=== PATIENT | female | born 2000 | race Two or more races ===

== ENCOUNTER → 2019-10-21 | Outpatient (CLI) | payer OTHER | END | disposition home or self-care (01) | LOC: LABWHC1 11:27 | PROVIDERS: ATTEND Nurse Practitioner Family | DX: R00.2 Palpitations (principal); R42 Dizziness and giddiness | CPT/HCPCS: 36415; 93005 ==

== ENCOUNTER → 2019-11-05 | Outpatient (CLI) | payer OTHER ==
--- NOTE | 2019-11-05 14:56 | ECHOF ---
Referral Reason:R42 dizziness, R00.2 palpitations MEASUREMENTS -------- HEIGHT: 165.1 cm WEIGHT: 66.2 kg BP: 119/66 RVIDd: 2.6 cm (< 3.3) IVSd: 0.9 cm (0.6 - 1.1) LVIDd: 4.2 cm (3.9 - 5.3) LVPWd: 1.1 cm (0.6 - 1.1) IVSs: 1.6 cm LVIDs: 2.9 cm LVPWs: 1.4 cm LA Diam: 2.6 cm (2.7 - 3.8) Ao Diam: 3.1 cm (2.0 - 3.7) AV Cusp: 2.1 cm (1.5 - 2.6) MV EXCURSION: 19.262 mm (> 18.000) MV EF SLOPE: 110 mm/s (70 - 150) EPSS: 0.4 cm MV E [place]: 1.03 m/s MV DecT: 165 ms MV A [place]: 0.76 m/s MV E/A Ratio: 1.35 RAP: 5.00 mmHg RVSP: 22.41 mmHg FINDINGS -------- Sinus rhythm. This was a technically good study. The left ventricular size is normal. Left ventricular wall thickness is normal. Overall left vent ricular systolic function is normal with, an EF between 55 - 60 %. The right ventricle is normal in size. The left atrial size is normal. The right atrial size is normal. Interatrial and interventricular septum intact. The aortic valve is trileaflet and appears structurally normal. Trace amount of aortic regurgitatio n. The mitral valve is normal. There is trace mitral regurgitation. Mild tricuspid regurgitation present. Right ventricular systolic pressure is normal at < 35 mmHg. The right ventricular systolic pressure, as measured by Doppler, is 22.41mmHg. Trace/mild (physiologic) pulmonic regurgitation. The aortic root size is normal. Normal inferior vena cava with normal inspiratory collapse consistent with estimated right atrial pre ssure of 5 mmHg. There is no pericardial effusion. CONCLUSIONS -------- 1. Sinus rhythm. 2. This was a technically good study. 3. The left ventricular size is normal. 4. Left ventricular wall thickness is normal. 5. Overall left ventricular systolic function is normal with, an EF between 55 - 60 %. 6. The left atrial size is normal. 7. The aortic valve is trileaflet and appears structurally normal. 8. Trace amount of aortic regurgitation. 9. There is trace mitral regurgitation. 10. Mild tricuspid regurgitation present. 11. Right ventricular systolic pressure is normal at < 35 mmHg. 12. Trace/mild (physiologic) pulmonic regurgitation. 13. There is no pericardial effusion. PASTRY SUPERVISOR: Minal Wild RDCS
== END | disposition home or self-care (01) ==
LOC: RADECHMAIN 11:14
PROVIDERS: ATTEND Family Medicine
DX: I07.1 Rheumatic tricuspid insufficiency (principal); I37.1 Nonrheumatic pulmonary valve insufficiency; R42 Dizziness and giddiness
CPT/HCPCS: 93270; 93306

== ENCOUNTER → 2021-07-29 | Outpatient (CLI) | payer OTHER ==
--- NOTE | 2021-07-29 15:47 | US ---
EXAMINATION TYPE: US thyroid st tissue head/neck DATE OF EXAM: 07/29/2021 COMPARISON: NONE CLINICAL HISTORY: M54.2 Cervicalgia, Z83.49 Family history of other. pain in her neck, normal labs pe r patient, no other complaints GLAND SIZE: Right Lobe: 4.7 x 1.1 x 1.5 cm Overall Parenchyma: heterogenous Left Lobe: 4.3 x 1.3 x 1.6 cm Overall Parenchyma: heterogeneous Isthmus Thickness: 0.4 cm NODULES RIGHT: # of nodules measured on right: 0 LEFT: # of nodules measured on left: 0 ISTHMUS: # of nodules measured in the isthmus: 0 Bilateral neck scanned, no evidence of lymphadenopathy. IMPRESSION: Benign thyroid ultrasound
== END | disposition home or self-care (01) ==
LOC: RADUSWWP 14:49
PROVIDERS: ATTEND Family Medicine
DX: M54.2 Cervicalgia (principal); Z83.49 Family history of other endocrine, nutritional and metabolic diseases
CPT/HCPCS: 76536

== ENCOUNTER 2023-07-26 23:06 | Emergency (ER) | payer OTHER ==
[2023-07-27] MEDS ORDERED: ONDANSETRON 4 MG/2 ML VIAL IVP STA (01:29)
[2023-07-27] MEDS ORDERED: PYRIDOXINE 100 MG/ML 1 ML VIAL IVP STA (01:29)
[2023-07-27] MEDS ORDERED: DEXTROSE 5%-0.9% NACL 1,000 ML IV SCH (01:30)
[2023-07-27 02:17] LABS: Appearance,Urine Clear (Clear); Bilirubin,Urine Negative (Negative); Blood,Urine Negative (Negative); Color,Urine Yellow; Glucose,Urine (UA) Negative (Negative); Ketones,Urine 3+ (Negative); Leukocyte Esterase,Urine Negative (Negative); Nitrite,Urine Negative (Negative); PH, Urine 6.5 (5.0-8.0); Protein,Urine Trace (Negative); Specific Gravity,Urine 1.026 (1.001-1.035); Urobilinogen,Urine <2.0 mg/dL (<2.0)
[2023-07-27 03:20] LABS: African American GFR (CKD) >90 (>60 ml/min/1.73 sqM); Anion Gap 10 mmol/L; Blood Urea Nitrogen 9 mg/dL (7-17); Calcium 9.5 mg/dL (8.4-10.2); Carbon Dioxide 21 mmol/L (22-30); Chloride 103 mmol/L (98-107); Glucose 98 mg/dL (74-99); Non-African American GFR(CKD) >90 (>60 ml/min/1.73 sqM); Potassium 4.1 mmol/L (3.5-5.1); Sodium 134 mmol/L (137-145)
[2023-07-27 03:22] LABS: Basophils % (A) 0 %; Eosinophils # (A) 0.1 k/uL (0-0.7); Eosinophils % (A) 1 %; HCT 39.7 % (34.0-46.0); HGB 13.5 gm/dL (11.4-16.0); Lymphocytes # (A) 2.2 k/uL (1.0-4.8); Lymphocytes % (A) 21 %; MCH 30.4 pg (25.0-35.0); MCHC 34.1 g/dL (31.0-37.0); MCV 89.3 fL (80.0-100.0); Mean Platelet Volume 8.1; Monocytes # (A) 0.4 k/uL (0-1.0); Monocytes % (A) 4 %; Neutrophils # (A) 7.7 k/uL (1.3-7.7); Neutrophils % (A) 73 %; Platelet Count 289 k/uL (150-450); RBC 4.45 m/uL (3.80-5.40); RDW 12.1 % (11.5-15.5); WBC 10.5 k/uL (3.8-10.6)
--- NOTE | 2023-07-27 03:58 | ED ---
General Adult HPI - General Chief complaint: Nausea/Vomiting/Diarrhea Stated complaint: Vomiting, Dehydration Time Seen by Provider: 07/27/23 01:20 Source: patient, RN notes reviewed, old records reviewed Mode of arrival: ambulatory Limitations: no limitations - History of Present Illness Initial comments: Patient is a 22-year-old female, A1 who presents emergency Department complaining of nausea and vomiting. Has been slightly throughout this however today has been unable to tolerate oral intake. States it was getting worse this morning. Endorses epigastric abdominal discomfort with vomiting but no other abdominal pain. Denies vaginal bleeding. Denies any vaginal discharge. Denies any urinary complaints. His no chest pain or shortness of breath. Denies any fevers or chills. Has not yet followed up with a CHARGE MASTER COORDINATOR but has appointment next week. Is not currently on vitamins. Was previously on Zofran for her last which ended in a 7 week miscarriage, which she is approximately 7 weeks at this time. However she has no more Zofran tablets and presents for further evaluation and she is concerned she is dehydrated. - Related Data Previous Rx's Medication Instructions Recorded Meclizine [Antivert] 25 mg PO TID #30 tab 01/29/16 Ondansetron Odt [Zofran Odt] 4 mg PO Q8HR PRN 3 Days #9 tab 07/27/23 [id number]/Iron/FA/O3/Dha/Epa/Fish 1 each PO DAILY 30 Days #30 capsule 07/27/23 [ Multi-Dha Softgel] Allergies Allergy/AdvReac Type Severity Reaction Status Date / Time No Known Allergies Allergy Verified 07/26/23 23:24 Review of Systems ROS Statement: Those systems with pertinent positive or pertinent negative responses have been documented in the HPI. Review of Systems: CONST: Denies fever EYES: Denies blurry vision ENT: Denies nasal congestion C/V: Denies Chest pain RESP: Denies shortness of breath GI: Endorses nausea and vomiting, mild epigastric abdominal pain. : Denies dysuria SKIN: Denies rash. MSK: Denies joint pain. NEURO: Denies headache ROS Other: All systems not noted in ROS Statement are negative. Past Medical History Past Medical History: No Reported History History of Any Multi-Drug Resistant Organisms: None Reported Past Surgical History: No Surgical Hx Reported Past Psychological History: Anxiety Smoking Status: Never smoker Past Alcohol Use History: None Reported Past Drug Use History: None Reported General Exam - General Exam Comments Initial Comments: General: Appears in no acute distress. HEAD: Normal with no signs of head trauma. EYES: PERRLA, EOMI, conjunctiva normal, no discharge. ENT: Hearing grossly intact, normal oropharynx. Dry mucous membranes. RESPIRATORY: Clear breath sounds bilaterally. No wheezes, rales, or rhonchi. C/V: Regular rate and rhythm. S1 and S2 auscultated,peripheral pulses 2+ and intact throughout ABD: Abd is soft, nontender, nondistended EXT: Normal range of motion, no obvious deformity SKIN: No rashes or lesions observed on exposed skin. NEURO: Alert and oriented 4. Limitations: no limitations Course Vital Signs 07/26/23 23:25 Temperature 97.8 F Pulse Rate 95 Respiratory 18 Rate Blood Pressure 125/77 O2 Sat by Pulse 98 Oximetry Medical Decision Making - Medical Decision Making Was pt. sent in by a medical professional or institution (, PA, REGULATORY COMPLIANCE DIRECTOR, urgent care, hospital, or penitentiary...) When possible be specific @ -No Did you speak to anyone other than the patient for history (EMS, parent, family, police, friend...)? What history was obtained from this source @ -No Did you review nursing and triage notes (agree or disagree)? Why? @ -I reviewed and agree with nursing and triage notes Were old charts reviewed (outside hosp., previous admission, EMS record, old EKG, old radiological studies, urgent care reports/EKG's, penitentiary records)? Report findings @ -No old charts were reviewed Differential Diagnosis (chest pain, altered mental status, abdominal pain women, abdominal pain men, vaginal bleeding, weakness, fever, dyspnea, syncope, headache, dizziness, GI bleed, back pain, seizure, CVA, palpatations, mental health, musculoskeletal)? @ -Hyperemesis gravidarum, , dehydration. This list is not all inclusive. EKG interpreted by me (3pts min.). @ -None done X-rays interpreted by me (1pt min.). @ -None done CT interpreted by me (1pt min.). @ -None done U/S interpreted by me (1pt. min.). @ -None done What testing was considered but not performed or refused? (CT, X-rays, U/S, labs)? Why? @ -None What meds were considered but not given or refused? Why? @ -None Did you discuss the management of the patient with other professionals (professionals i.e. , PA, REGULATORY COMPLIANCE DIRECTOR, lab, RT, psych nurse, health care social worker, back sewer, teacher, employee service officer, manager case management)? Give summary @ -No Was smoking cessation discussed for >3mins.? @ -No Was critical care preformed (if so, how long)? @ -No Were there social determinants of health that impacted care today? How? (Homelessness, low income, unemployed, alcoholism, drug addiction, transportation, low edu. Level, literacy, decrease access to med. care, fpc, rehab)? @ -No Was there de-escalation of care discussed even if they declined (Discuss DNR or withdrawal of care, Hospice)? DNR status @ -No What co-morbidities impacted this encounter? (DM, HTN, Smoking, COPD, CAD, Cancer, CVA, ARF, Chemo, Hep., AIDS, mental health diagnosis, sleep apnea, morbid obesity)? @ -None Was patient admitted / discharged? Hospital course, mention meds given and route, prescriptions, significant lab abnormalities, going to OR and other pertinent info. @ -Based on the patient's presentation and physical exam, she presents approximately 7 weeks with intractable nausea and vomiting. Concern for hyperemesis gravidarum which she does have a history of. No concern for miscarriage at this time. We will obtain abdominal laboratory studies as well as provide the patient with 1 L D5 normal saline as well as obtain a urinalysis. She was in agreement this plan. She'll be given vitamin B6 as well as Zofran for nausea. Vital signs within acceptable limits. Labs are remarkable for 3+ ketones in the urine but otherwise within acceptable limits. Quantitative beta-hCG is. On reevaluation, patient is feeling improved. She is tolerating oral intake. She'll be discharged home at this time. She'll be given a prescription for vitamins as well as ODT Zofran. She was in agreement this plan. I will provide the patient with a prescription for ODT Zofran, vitamins. I instructed the patient to follow up with their PCP in the next 1-3 days. I explained that the patient should return to the emergency department if they experience any worsening symptoms. Strict return precautions were discussed with the patient. The patient expressed understanding of these instructions. I answered all questions that the patient had. The patient was discharged home in good condition with their prescriptions and follow up information. Undiagnosed new problem with uncertain prognosis? @ -No Drug Therapy requiring intensive monitoring for toxicity (Heparin, Nitro, Insulin, Cardizem)? @ -No Were any procedures done? @ -No Diagnosis/symptom? @ -Nausea and vomiting in , dehydration Acute, or Chronic, or Acute on Chronic? @ -Acute Uncomplicated (without systemic symptoms) or Complicated (systemic symptoms)? @ -Complicated Side effects of treatment? @ -No Exacerbation, Progression, or Severe Exacerbation? @ -No Poses a threat to life or bodily function? How? (Chest pain, [place], [place], pneumonia, PE, COPD, DKA, ARF, appy, cholecystitis, CVA, Diverticulitis, Homicidal, Suicidal, threat to staff... and all critical care pts) @ -No - Lab Data Result diagrams: 07/27/23 01:49 07/27/23 01:49 Lab Results 07/27/23 07/27/23 07/27/23 Range/Units 01:49 01:49 01:49 WBC 10.5 (3.8-10.6) k/uL RBC 4.45 (3.80-5.40) m/uL Hgb 13.5 (11.4-16.0) gm/dL Hct 39.7 (34.0-46.0) % MCV 89.3 (80.0-100.0) fL MCH 30.4 (25.0-35.0) pg MCHC 34.1 (31.0-37.0) g/dL RDW 12.1 (11.5-15.5) % Plt Count 289 (150-450) k/uL MPV 8.1 Neutrophils % 73 % Lymphocytes % 21 % Monocytes % 4 % Eosinophils % 1 % Basophils % 0 % Neutrophils # 7.7 (1.3-7.7) k/uL Lymphocytes # 2.2 (1.0-4.8) k/uL Monocytes # 0.4 (0-1.0) k/uL Eosinophils # 0.1 (0-0.7) k/uL Basophils # 0.0 (0-0.2) k/uL Sodium 134 L (137-145) mmol/L Potassium 4.1 (3.5-5.1) mmol/L Chloride 103 (98-107) mmol/L Carbon Dioxide 21 L (22-30) mmol/L Anion Gap 10 mmol/L BUN 9 (7-17) mg/dL Creatinine 0.60 (0.52-1.04) mg/dL Est GFR (CKD-EPI)AfAm >90 (>60 ml/min/1.73 sqM) Est GFR (CKD-EPI)NonAf >90 (>60 ml/min/1.73 sqM) Glucose 98 (74-99) mg/dL Calcium 9.5 (8.4-10.2) mg/dL Urine Color Yellow Urine Appearance Clear (Clear) Urine pH 6.5 (5.0-8.0) Ur Specific [place] 1.026 (1.001-1.035) Urine Protein Trace H (Negative) Urine Glucose (UA) Negative (Negative) Urine Ketones 3+ H (Negative) Urine Blood Negative (Negative) Urine Nitrite Negative (Negative) Urine Bilirubin Negative (Negative) Urine Urobilinogen <2.0 (<2.0) mg/dL Ur Leukocyte Esterase Negative (Negative) Disposition Clinical Impression: Nausea and vomiting in , Dehydration Disposition: HOME SELF-CARE Condition: Good Instructions (If sedation given, give patient instructions): Acute Nausea and Vomiting (ED), Hyperemesis Gravidarum (ED) Prescriptions: [id number]/Iron/FA/O3/Dha/Epa/Fish [ Multi-Dha Softgel] 1 each PO DAILY 30 Days #30 capsule Ondansetron Odt [Zofran Odt] 4 mg PO Q8HR PRN 3 Days #9 tab PRN Reason: Nausea Is patient prescribed a controlled substance at d/c from ED?: No Referrals: Dex Corrigan MD [Primary Care Provider] - 1-2 days Time of Disposition: 03:45
[2023-07-27 04:13] VITALS: BP 113/67; PULSE 92; RESP 17; TEMP 99
[2023-07-27 04:41] LABS: HCG,Quantitative Serum 98373.7 mIU/mL
== END 2023-07-27 04:11 | disposition home or self-care (01) ==
LOC: EC 23:06
DX: O99.281 Endocrine, nutritional and metabolic diseases complicating pregnancy, first trimester (principal); E86.0 Dehydration; O21.9 Vomiting of pregnancy, unspecified; Z3A.01 Less than 8 weeks gestation of pregnancy
CPT/HCPCS: 36415; 80048; 85025; 81003; 84702; 99284; 96374; 96375; 96361; J3415; J2405

== ENCOUNTER → 2024-08-07 | Outpatient (CLI) | payer OTHER ==
--- NOTE | 2024-08-07 11:53 | XR ---
EXAMINATION TYPE: XR ribs RT DATE OF EXAM: 08/07/2024 CLINICAL HISTORY: Pain, Fall Four views of the ribs fail demonstrate evidence for displaced rib fracture or secondary sign of rib fracture. Visualized lungs are clear. No evidence for pneumothorax. IMPRESSION: 1. No displaced rib fractures seen. ICD 10 NO FRACTURE, INITIAL EVALUATION [facility] , 08/07/2024 11:51 AM
== END | disposition home or self-care (01) ==
LOC: RADXRMAIN 11:20
PROVIDERS: ATTEND Internal Medicine
DX: R07.81 Pleurodynia (principal)

== ENCOUNTER → 2024-09-20 | Outpatient (CLI) | payer OTHER ==
--- NOTE | 2024-09-21 22:49 | US ---
EXAMINATION TYPE: US liver DATE OF EXAM: 09/20/2024 COMPARISON: NONE CLINICAL INDICATION: Female, 23 years old with history of R07.81 RIB ON RIGHT SIDE; RUQ pain x 1 magui h TECHNIQUE: Grayscale and color Doppler imaging of the right upper quadrant was performed. FINDINGS: EXAM MEASUREMENTS: Liver Length: 14.2 cm Gallbladder Wall: 0.2 cm CBD: 0.3 cm Right Kidney: 11.1x4.1x5.8 cm SMALL PARTS ASSEMBLER NOTES: Pancreas: Tail obscured by overlying bowel gas Liver: wnl Gallbladder: suspicious pleomorphic isoechoic area at the gallbladder wall measuring up to 6mm. Diff erential includes polyp. Evidence for sonographic Rothman's sign: No CBD: wnl Right Kidney: wnl IMPRESSION: 1. Suspected polyp within the gallbladder. Follow-up monitoring recommended. [facility], , 09/21/2024 10:46 PM
== END | disposition home or self-care (01) ==
LOC: RADUSWWP 10:11
PROVIDERS: ATTEND Internal Medicine
DX: R07.81 Pleurodynia (principal)
CPT/HCPCS: 76705

== ENCOUNTER → 2025-04-07 | Outpatient (CLI) | payer OTHER | END | disposition home or self-care (01) | LOC: RADUSWWP 07:07 | PROVIDERS: ATTEND Surgery | DX: Z53.9 Procedure and treatment not carried out, unspecified reason (principal) ==

== ENCOUNTER 2025-04-08 14:44 | Emergency (ER) | payer OTHER ==
[2025-04-08 14:52] VITALS: TEMP 97.9
--- NOTE | 2025-04-08 15:06 | ED ---
Nausea/Vomiting/Diarrhea HPI - General Chief complaint: Nausea/Vomiting/Diarrhea Stated complaint: Abd pain Time Seen by Provider: 04/08/25 15:01 Source: patient, RN notes reviewed, old records reviewed Mode of arrival: ambulatory Limitations: no limitations - History of Present Illness Initial comments: This is a 24-year-old female to the ER for persistent nausea vomiting and diarrhea. Patient recently upped her GLP-1 injection and since has had nausea vomiting and diarrhea. No real abdominal pain here in the ER no other complaints patient has not felt feverish no travel history or sick contacts no other complaints MD complaint: nausea, vomiting, diarrhea, abdominal pain -: days(s) Description of Vomiting: food contents, watery, bilious Description of Diarrhea: water Location: diffuse Radiation: none Severity: moderate Severity scale (1-10): 4 Quality: cramping Consistency: intermittent Improves with: none Worsens with: none Associated Symptoms: myalgias - Related Data Previous Rx's Medication Instructions Recorded Meclizine [Antivert] 25 mg PO TID #30 tab 01/28/ Ondansetron Odt [Zofran Odt] 4 mg PO Q8HR PRN 3 Days #9 tab 07/27/23 [id number]/Iron/FA/O3/Dha/Epa/Fish 1 each PO DAILY 30 Days #30 capsule 07/27/23 [ Multi-Dha Softgel] Famotidine [Pepcid] 20 mg PO DAILY #5 tablet 04/10/25 Ondansetron Odt [Zofran ODT] 4 mg PO Q8HR PRN #9 tab 04/10/25 Allergies Allergy/AdvReac Type Severity Reaction Status Date / Time No Known Allergies Allergy Verified 04/10/25 08:23 Review of Systems ROS Statement: Those systems with pertinent positive or pertinent negative responses have been documented in the HPI. ROS Other: All systems not noted in ROS Statement are negative. Past Medical History Past Medical History: No Reported History History of Any Multi-Drug Resistant Organisms: None Reported Past Surgical History: No Surgical Hx Reported Past Psychological History: Anxiety Smoking Status: Never smoker Past Alcohol Use History: None Reported Past Drug Use History: None Reported General Exam Limitations: no limitations General appearance: alert, in no apparent distress Head exam: Present: atraumatic, normocephalic, normal inspection Eye exam: Present: normal appearance, PERRL, EOMI. Absent: scleral icterus, conjunctival injection, periorbital swelling ENT exam: Present: normal exam, mucous membranes moist Neck exam: Present: normal inspection. Absent: tenderness, meningismus, lymphadenopathy Respiratory exam: Present: normal lung sounds bilaterally. Absent: respiratory distress, wheezes, rales, rhonchi, stridor Cardiovascular Exam: Present: regular rate, normal rhythm, normal heart sounds. Absent: systolic murmur, diastolic murmur, rubs, gallop, clicks GI/Abdominal exam: Present: soft, normal bowel sounds. Absent: distended, tenderness, guarding, rebound, rigid Extremities exam: Present: normal inspection, full ROM, normal capillary refill. Absent: tenderness, pedal edema, joint swelling, calf tenderness Back exam: Present: normal inspection Neurological exam: Present: alert, oriented X3, CN II-XII intact Psychiatric exam: Present: normal affect, normal mood Skin exam: Present: warm, dry, intact, normal color. Absent: rash Course Vital Signs 04/08/25 04/08/25 14:50 16:44 Temperature 97.9 F Pulse Rate 103 H 84 Respiratory 16 18 Rate Blood Pressure 120/77 110/76 O2 Sat by Pulse 100 98 Oximetry - Reevaluation(s) Reevaluation #1: 04/08/25 20:26 Medical records reviewed Reevaluation #2: 04/08/25 20:26 Patient's symptoms improved Reevaluation #3: 04/08/25 20:26 Patient informed of results questions answered Reevaluation #4: Was pt. sent in by a medical professional or institution (, PA, [employer] MECH[employer]ICAL ENGINEER, urgent care, hospital, or longterm...) When possible be specific @ -no Did you speak to anyone other than the patient for history (EMS, parent, family, police, friend...)? What history was obtained from this source @ -no Did you review nursing and triage notes (agree or disagree)? Why? @ -agree Are old charts reviewed (outside hosp., previous admission, EMS record, old EKG, old radiological studies, urgent care reports/EKG's, longterm records)? R eport findings @ -yes Differential Diagnosis (chest pain, altered mental status, abdominal pain women, abdominal pain men, vaginal bleeding, weakness, fever, dyspnea, syncope, headache, dizziness, GI bleed, back pain, seizure, CVA, palpatations, mental health, musculoskeletal)? @ -prior EKG interpreted by me (3pts min.). @ -yes X-rays interpreted by me (1pt min.). @ -no CT interpreted by me (1pt min.). @ -no U/S interpreted by me (1pt. min.). @ -no What testing was considered but not performed or refused? (CT, X-rays, U/S, labs)? Why? @ -none What meds were considered but not given or refused? Why? @ -none Did you discuss the management of the patient with other professionals (prof mannys i.e. , PA, [employer] MECH[employer]ICAL ENGINEER, lab, RT, psych nurse, social studies teacher, lathe operator, teacher, senior credit officer, corrections caseworker)? Give summary @ -no Was smoking cessation discussed for >3mins.? @ -no Was critical care preformed (if so, how long)? @ -no Were there social determinants of health that impacted care today? How? (Homelessness, low income, unemployed, alcoholism, drug addiction, transportation, low edu. Level, literacy, decrease access to med. care, senior care, rehab)? @ -none Was there de-escalation of care discussed even if they declined (Discuss DNR or withdrawal of care, Hospice)? DNR status @ -no What co-morbidities impacted this encounter? (DM, HTN, Smoking, COPD, CAD, Cancer, CVA, ARF, Chemo, Hep., AIDS, mental health diagnosis, sleep apnea, morbid obesity)? @ -none Was patient admitted / discharged? Hospital course, mention meds given and route, prescriptions, significant lab abnormalities, going to OR and other pertinent info. @ - 24 female to ER for abdominal pain with nausea vomiting all symptoms resolved hydration has improved patient is symptoms here in the ER patient feels well for discharge home Discharge Undiagnosed new problem with uncertain prognosis? @ -no Drug Therapy requiring intensive monitoring for toxicity (Heparin, Nitro, Insulin, Cardizem)? @ -no Were any procedures done? @ -no Diagnosis/symptom? @ -Nausea vomiting dehydration Acute, or Chronic, or Acute on Chronic? @ -Acute Uncomplicated (without systemic symptoms) or Complicated (systemic symptoms)? @ -Complicated Side effects of treatment? @ -no Exacerbation, Progression, or Severe Exacerbation? @ -exacerbation Poses a threat to life or bodily function? How? (Chest pain, [place], [place], pneumonia, PE, COPD, DKA, ARF, appy, cholecystitis, CVA, Diverticulitis, Homicidal, Suicidal, threat to staff... and all critical care pts) @ -no Reevaluation #5: Differential Abdominal Pain Women: Appendicitis, Cholecystitis, diverticulosis, ischemic bowel, pancreatitis, hepatitis, UTI, gastroenteritis, AAA, incarcerated hernia, bowel obstruction, constipation, inflammatory bowel, hepatitis, peptic ulcer disease, splenic infarction, perforated viscus, vulvitis, ovarian torsion, PID, kidney stone, placenta abruption, this is not meant to be an all-inclusive list Medical Decision Making - Medical Decision Making 24 female to ER for abdominal pain with nausea vomiting all symptoms resolved hydration has improved patient is symptoms here in the ER patient feels well for discharge home - Lab Data Result diagrams: 04/08/25 15:17 04/08/25 15:17 Lab Results 04/08/25 04/08/25 04/08/25 Range/Units 15:17 15:17 15:17 WBC 10.08 H (4.50-10.00) 10*3/uL RBC 4.82 (4.10-5.20) 10*6/uL Hgb 14.6 (12.0-15.0) g/dL Hct 41.7 (37.2-46.3) % MCV 86.5 (80.0-97.0) fL MCH 30.3 (27.0-32.0) pg MCHC 35.0 (32.0-37.0) g/dL Plt Count 274 (140-440) 10*3/uL MPV 8.8 L (9.5-12.2) fL Immature Gran % (Auto) 0.3 % Neutrophils % 83.0 % Lymphocytes % 10.6 % Monocytes % 5.2 % Eosinophils % 0.7 % Basophils % 0.2 % Immature Gran # 0.03 (0.00-0.04) 10*3/uL Neutrophils # 8.37 H (1.80-7.70) 10*3/uL Lymphocytes # 1.07 (0.90-5.00) 10*3/uL Monocytes # 0.52 (0.20-1.00) 10*3/uL Eosinophils # 0.07 (0.04-0.35) 10*3/uL Basophils # 0.02 (0.00-0.10) 10*3/uL PT 10.6 (10.0-12.5) sec INR 0.9 (<1.2) APTT 26.8 (22.0-30.0) sec Sodium 137 (137-145) mmol/L Potassium 4.2 (3.5-5.1) mmol/L Chloride 105 (98-107) mmol/L Carbon Dioxide 24 (22-30) mmol/L Anion Gap 8 mmol/L BUN 12 (7-17) mg/dL Creatinine 0.71 (0.52-1.04) mg/dL Est GFR (CKD-EPI)AfAm >90 (>60 ml/min/1.73 sqM) Est GFR (CKD-EPI)NonAf >90 (>60 ml/min/1.73 sqM) Glucose 97 (74-99) mg/dL Plasma Lactic Acid Roman (0.7-2.0) mmol/L Calcium 9.5 (8.4-10.2) mg/dL Phosphorus 3.2 (2.5-4.5) mg/dL Magnesium 1.7 (1.6-2.3) mg/dL Total Bilirubin 0.8 (0.2-1.3) mg/dL AST 19 (14-36) U/L ALT 11 (4-34) U/L Alkaline Phosphatase 63 (38-126) U/L Troponin I (0.000-0.034) ng/mL Total Protein 8.1 (6.3-8.2) g/dL Albumin 4.8 (3.5-5.0) g/dL Lipase 79 (23-300) U/L Urine Color Urine Appearance (Clear) Urine pH (5.0-8.0) Ur Specific [place] (1.001-1.035) Urine Protein (Negative) Urine Glucose (UA) (Negative) Urine Ketones (Negative) Urine Blood (Negative) Urine Nitrite (Negative) Urine Bilirubin (Negative) Urine Urobilinogen (<2.0) mg/dL Ur Leukocyte Esterase (Negative) Urine HCG, Qual (Not Detectd) Influenza Type A (PCR) (Not Detectd) Influenza Type B (PCR) (Not Detectd) RSV (PCR) (Not Detectd) SARS-CoV-2 (PCR) (Not Detectd) 04/08/25 04/08/25 04/08/25 Range/Units 15:17 15:17 16:01 WBC (4.50-10.00) 10*3/uL RBC (4.10-5.20) 10*6/uL Hgb (12.0-15.0) g/dL Hct (37.2-46.3) % MCV (80.0-97.0) fL MCH (27.0-32.0) pg MCHC (32.0-37.0) g/dL Plt Count (140-440) 10*3/uL MPV (9.5-12.2) fL Immature Gran % (Auto) % Neutrophils % % Lymphocytes % % Monocytes % % Eosinophils % % Basophils % % Immature Gran # (0.00-0.04) 10*3/uL Neutrophils # (1.80-7.70) 10*3/uL Lymphocytes # (0.90-5.00) 10*3/uL Monocytes # (0.20-1.00) 10*3/uL Eosinophils # (0.04-0.35) 10*3/uL Basophils # (0.00-0.10) 10*3/uL PT (10.0-12.5) sec INR (<1.2) APTT (22.0-30.0) sec Sodium (137-145) mmol/L Potassium (3.5-5.1) mmol/L Chloride (98-107) mmol/L Carbon Dioxide (22-30) mmol/L Anion Gap mmol/L BUN (7-17) mg/dL Creatinine (0.52-1.04) mg/dL Est GFR (CKD-EPI)AfAm (>60 ml/min/1.73 sqM) Est GFR (CKD-EPI)NonAf (>60 ml/min/1.73 sqM) Glucose (74-99) mg/dL Plasma Lactic Acid Roman 0.8 (0.7-2.0) mmol/L Calcium (8.4-10.2) mg/dL Phosphorus (2.5-4.5) mg/dL Magnesium (1.6-2.3) mg/dL Total Bilirubin (0.2-1.3) mg/dL AST (14-36) U/L ALT (4-34) U/L Alkaline Phosphatase (38-126) U/L Troponin I <0.012 (0.000-0.034) ng/mL Total Protein (6.3-8.2) g/dL Albumin (3.5-5.0) g/dL Lipase (23-300) U/L Urine Color Light Yellow Urine Appearance Clear (Clear) Urine pH 5.5 (5.0-8.0) Ur Specific [place] 1.017 (1.001-1.035) Urine Protein Negative (Negative) Urine Glucose (UA) Negative (Negative) Urine Ketones 1+ H (Negative) Urine Blood Negative (Negative) Urine Nitrite Negative (Negative) Urine Bilirubin Negative (Negative) Urine Urobilinogen <2.0 (<2.0) mg/dL Ur Leukocyte Esterase Negative (Negative) Urine HCG, Qual (Not Detectd) Influenza Type A (PCR) (Not Detectd) Influenza Type B (PCR) (Not Detectd) RSV (PCR) (Not Detectd) SARS-CoV-2 (PCR) (Not Detectd) 04/08/25 04/08/25 Range/Units 16:01 16:36 WBC (4.50-10.00) 10*3/uL RBC (4.10-5.20) 10*6/uL Hgb (12.0-15.0) g/dL Hct (37.2-46.3) % MCV (80.0-97.0) fL MCH (27.0-32.0) pg MCHC (32.0-37.0) g/dL Plt Count (140-440) 10*3/uL MPV (9.5-12.2) fL Immature Gran % (Auto) % Neutrophils % % Lymphocytes % % Monocytes % % Eosinophils % % Basophils % % Immature Gran # (0.00-0.04) 10*3/uL Neutrophils # (1.80-7.70) 10*3/uL Lymphocytes # (0.90-5.00) 10*3/uL Monocytes # (0.20-1.00) 10*3/uL Eosinophils # (0.04-0.35) 10*3/uL Basophils # (0.00-0.10) 10*3/uL PT (10.0-12.5) sec INR (<1.2) APTT (22.0-30.0) sec Sodium (137-145) mmol/L Potassium (3.5-5.1) mmol/L Chloride (98-107) mmol/L Carbon Dioxide (22-30) mmol/L Anion Gap mmol/L BUN (7-17) mg/dL Creatinine (0.52-1.04) mg/dL Est GFR (CKD-EPI)AfAm (>60 ml/min/1.73 sqM) Est GFR (CKD-EPI)NonAf (>60 ml/min/1.73 sqM) Glucose (74-99) mg/dL Plasma Lactic Acid Roman (0.7-2.0) mmol/L Calcium (8.4-10.2) mg/dL Phosphorus (2.5-4.5) mg/dL Magnesium (1.6-2.3) mg/dL Total Bilirubin (0.2-1.3) mg/dL AST (14-36) U/L ALT (4-34) U/L Alkaline Phosphatase (38-126) U/L Troponin I (0.000-0.034) ng/mL Total Protein (6.3-8.2) g/dL Albumin (3.5-5.0) g/dL Lipase (23-300) U/L Urine Color Urine Appearance (Clear) Urine pH (5.0-8.0) Ur Specific [place] (1.001-1.035) Urine Protein (Negative) Urine Glucose (UA) (Negative) Urine Ketones (Negative) Urine Blood (Negative) Urine Nitrite (Negative) Urine Bilirubin (Negative) Urine Urobilinogen (<2.0) mg/dL Ur Leukocyte Esterase (Negative) Urine HCG, Qual Not Detected (Not Detectd) Influenza Type A (PCR) Not Detected (Not Detectd) Influenza Type B (PCR) Not Detected (Not Detectd) RSV (PCR) Not Detected (Not Detectd) SARS-CoV-2 (PCR) Not Detected (Not Detectd) - EKG Data -: EKG Interpreted by Me (EKG is sinus 68 CO 177 QRS 92 QTc 396) Disposition Clinical Impression: Dehydration, Nausea & vomiting Disposition: HOME SELF-CARE Condition: Good Instructions (If sedation given, give patient instructions): Acute Nausea and Vomiting (ED) Is patient prescribed a controlled substance at d/c from ED?: No Referrals: Cynthia Harry MD [Primary Care Provider] - 1-2 days Time of Disposition: 16:00
[2025-04-08] MEDS: SODIUM CHLORIDE 0.9% 1,000 ML IV ONE (15:21)
[2025-04-08] MEDS: ONDANSETRON 4 MG/2 ML VIAL IVP STA (15:21)
[2025-04-08 15:33] LABS: Basophils # (A) 0.02 10*3/uL (0.00-0.10); Basophils % (A) 0.2 %; Eosinophils # (A) 0.07 10*3/uL (0.04-0.35); Eosinophils % (A) 0.7 %; HCT 41.7 % (37.2-46.3); HGB 14.6 g/dL (12.0-15.0); Lymphocytes # (A) 1.07 10*3/uL (0.90-5.00); Lymphocytes % (A) 10.6 %; MCH 30.3 pg (27.0-32.0); MCV 86.5 fL (80.0-97.0); Mean Platelet Volume 8.8 fL (9.5-12.2); Monocytes # (A) 0.52 10*3/uL (0.20-1.00); Monocytes % (A) 5.2 %; Neutrophils # (A) 8.37 10*3/uL (1.80-7.70); Platelet Count 274 10*3/uL (140-440); RBC 4.82 10*6/uL (4.10-5.20); RDW 11.5 % (11.5-14.5); WBC 10.08 10*3/uL (4.50-10.00)
[2025-04-08 15:43] LABS: INR 0.9 (<1.2); Partial Thromboplastin Time 26.8 sec (22.0-30.0); Prothrombin Time 10.6 sec (10.0-12.5)
[2025-04-08 15:46] LABS: ALT 11 U/L (4-34); AST 19 U/L (14-36); African American GFR (CKD) >90 (>60 ml/min/1.73 sqM); Albumin 4.8 g/dL (3.5-5.0); Alkaline Phosphatase 63 U/L (38-126); Anion Gap 8 mmol/L; Blood Urea Nitrogen 12 mg/dL (7-17); Calcium 9.5 mg/dL (8.4-10.2); Carbon Dioxide 24 mmol/L (22-30); Chloride 105 mmol/L (98-107); Glucose 97 mg/dL (74-99); Lipase 79 U/L (23-300); Magnesium 1.7 mg/dL (1.6-2.3); Non-African American GFR(CKD) >90 (>60 ml/min/1.73 sqM); Phosphorus 3.2 mg/dL (2.5-4.5); Potassium 4.2 mmol/L (3.5-5.1); Sodium 137 mmol/L (137-145); Total Bilirubin 0.8 mg/dL (0.2-1.3); Total Protein 8.1 g/dL (6.3-8.2)
[2025-04-08 16:07] LABS: Appearance,Urine Clear (Clear); Bilirubin,Urine Negative (Negative); Blood,Urine Negative (Negative); Color,Urine Light Yellow; Glucose,Urine (UA) Negative (Negative); Ketones,Urine 1+ (Negative); Leukocyte Esterase,Urine Negative (Negative); Nitrite,Urine Negative (Negative); PH, Urine 5.5 (5.0-8.0); Protein,Urine Negative (Negative); Specific Gravity,Urine 1.017 (1.001-1.035); Urobilinogen,Urine <2.0 mg/dL (<2.0)
[2025-04-08] MEDS: ONDANSETRON 4 MG ODT STARTER PACK 2 TAB BTL PO STA (16:39)
[2025-04-08 16:45] VITALS: BP 110/76; PULSE 84; RESP 18
[2025-04-08 17:17] LABS: Influenza A Not Detected (Not Detectd); Influenza B Not Detected (Not Detectd); RSV Not Detected (Not Detectd)
== END 2025-04-08 16:45 | disposition home or self-care (01) ==
LOC: EC 14:44
DX: R11.2 Nausea with vomiting, unspecified (principal); E86.0 Dehydration
CPT/HCPCS: 36415; 93005; 80053; 83605; 83690; 83735; 84100; 84484; 85025; 85610; 85730; 81003; 81025; 87636; 99284; 96374; 96361; J2405; S0119

== ENCOUNTER → 2025-06-06 | Outpatient (CLI) | payer OTHER ==
--- NOTE | 2025-06-06 07:56 | US ---
EXAMINATION TYPE: US gallbladder DATE OF EXAM: 06/06/2025 COMPARISON: US 09/20/2024 CLINICAL INDICATION: Female, 24 years old with history of K82.8 OTHER SPECIFIED DISEASES OF GALLBLADD ER; Disease of gallbladder, pt states hx of a polyp TECHNIQUE: Grayscale and color Doppler imaging of the right upper quadrant. FINDINGS: EXAM MEASUREMENTS: Liver Length: 14.2 cm Gallbladder Wall: 0.17 cm CBD: 0.24 cm, color Doppler imaging was utilized to isolate the common bile duct for measurement. Right Kidney: 11.0 x 5.4 x 4.5 cm INSIGHTS ANALYST NOTES: Exam is limited due to gas. Pancreas: Obscured by bowel gas. Visualized portions within normal limits. Liver: No abnormalities seen Gallbladder: 2 hyperechoic areas seen that appear to be attached to the gallbladder wall. Larger a cristino measures: 0.9 x 0.6 x 0.6 cm. Evidence for sonographic Rothman's sign: No CBD: wnl Right Kidney: No hydronephrosis or masses seen IMPRESSION: Small gallbladder polyps or non shadowing adherent gallstones. No gallbladder wall thickening or diag nostic evidence of cholecystitis. [facility], , 06/06/2025 7:54 AM
== END | disposition home or self-care (01) ==
LOC: RADUSWWP 06:59
PROVIDERS: ATTEND Surgery
DX: K82.8 Other specified diseases of gallbladder (principal); K80.20 Calculus of gallbladder without cholecystitis without obstruction
CPT/HCPCS: 76705